=== PATIENT | female | born 1970 | race Caucasian/White ===

== ENCOUNTER 2018-04-16 23:55 | Emergency (ER) | payer OTHER ==
[~2018-04-16] VITALS: Ht 175.2 cm; Wt 108.9 kg
[2018-04-17] MEDS ORDERED: Motrin,Rufen800 MG PO (00:50)
== END 2018-04-17 01:45 | disposition home or self-care (01) ==
LOC: ED 23:55
DX: S93.401A Sprain of unspecified ligament of right ankle, initial encounter (principal); S80.02XA Contusion of left knee, initial encounter; W00.0XXA Fall on same level due to ice and snow, initial encounter; Y93.89 Activity, other specified; Y92.481 Parking lot as the place of occurrence of the external cause; Y99.0 Civilian activity done for income or pay

== ENCOUNTER 2024-01-22 15:47 | Emergency (ER) | payer OTHER ==
[~2024-01-22] VITALS: Ht 175.2 cm; Wt 122.5 kg
[~2024-01-22 15:47] MED LIST: Motrin,Rufen800 MG PO
== END 2024-01-22 18:00 | disposition home or self-care (01) ==
LOC: ED 15:47
DX: S60.222A Contusion of left hand, initial encounter (principal); W22.09XA Striking against other stationary object, initial encounter; Y93.01 Activity, walking, marching and hiking; Y92.89 Other specified places as the place of occurrence of the external cause; Y99.0 Civilian activity done for income or pay

== ENCOUNTER → 2024-01-30 | Outpatient (CLI) | payer OTHER | END | disposition home or self-care (01) | LOC: RAD 10:49 | PROVIDERS: ATTEND Family Medicine | DX: M47.816 Spondylosis without myelopathy or radiculopathy, lumbar region (principal); M48.07 Spinal stenosis, lumbosacral region; M51.369 Other intervertebral disc degeneration, lumbar region without mention of lumbar back pain or lower extremity pain; M25.511 Pain in right shoulder; M54.50 Low back pain, unspecified ==